=== PATIENT | female | born 1985 | race African-American/Black ===

== ENCOUNTER 2017-06-21 12:34 | Inpatient (IN) | payer MEDICAID ==
[~2017-06-21] VITALS: Ht 157.5 cm; Wt 61.2 kg
[~2017-06-21 12:34] MED LIST: FOLI-43 PO; PREN-55 PO
[2017-06-21] MEDS ORDERED: DEXT 5%/LR + PITOCIN 20UNITS/L 1,000 ML IV SCH ×2 (12:45→14:17)
[2017-06-21] MEDS ORDERED: NALOXONE HCL 0.4 MG/ML 1ML VIAL IM PRN (12:45)
[2017-06-21] MEDS ORDERED: MISOPROSTOL 100MCG TABLET VG SCH (12:45)
[2017-06-21] MEDS ORDERED: METHYLERGONOVINE MALEATE 0.2 MG/ML IM PRN (12:45)
[2017-06-21] MEDS ORDERED: CARBOPROST TROMETHAMINE 250 MCG/ML AMPUL IM PRN (12:45)
[2017-06-21] MEDS ORDERED: PENICILLIN G POTASSIUM 5 MMU in DEXT 5% WATER 100 ML IV SCH (12:45)
[2017-06-21] MEDS ORDERED: LIDOCAINE HCL/PF 1% 10 MG/ML 5ML VIAL IJ SCH (12:45)
[2017-06-21] MEDS ORDERED: LACTATED RINGERS 1,000 ML IV SCH (12:45)
[2017-06-21] MEDS ORDERED: BUTORPHANOL TARTRATE 2 MG/ML VIAL IV PRN (12:51)
[2017-06-21] MEDS ORDERED: MORPHINE SULFATE/PF 1MG/ML 10ML AMP ONE (13:30)
[2017-06-21] MEDS ORDERED: FENTANYL CITRATE/PF 50MCG/ML 2ML VIAL ONE (13:30)
[2017-06-21 13:31] LABS: BASOPHILS % 0.1 % (0.0-2.0); EOSINOPHILS % 0.1 % (0.0-5.0); HEMATOCRIT. 36.4 % (36.0-48.0); HEMOGLOBIN. 12.5 g/dL (12.0-16.0); LYMPHOCYTES % 12.2 % (20.0-50.0); MEAN CORPUSCULAR HEMOGLOBIN 31.4 pg (28.0-32.0); MEAN CORPUSCULAR VOLUME 91.4 fL (81.0-99.0); MEAN PLATELET VOLUME 8.9 fl (7.4-10.4); MONOCYTES % 6.6 % (2.0-8.0); PLATELET 124 x1000/uL (130-400); RED BLOOD CELL COUNT 3.98 mill/uL (4.2-5.4); RED CELL DISTRIBUTION WIDTH 15.4 % (11.6-14.6)
[2017-06-21] MEDS ORDERED: ONDANSETRON HCL 4MG/2ML VIAL ONE (13:35)
[2017-06-21] MEDS ORDERED: PHENYLEPHRINE HCL 10 MG/ML 1ML (IV VIAL) IV ONE (13:35)
[2017-06-21] MEDS ORDERED: EPHEDRINE SULFATE 50MG/ML VIAL ONE (13:35)
[2017-06-21] MEDS ORDERED: GLYCOPYRROLATE 0.2 MG/ML 2ML VIAL ONE (13:35)
[2017-06-21 13:39] LABS: INR 0.9; PARTIAL THROMBOPLASTIN TIME 32.2 sec (23.4-31.0); PROTHROMBIN TIME 9.4 sec (9.4-11.6)
[2017-06-21] MEDS ORDERED: LIDOCAINE HCL/PF 1% 10 MG/ML 5ML VIAL ONE (13:48)
[2017-06-21 14:13] LABS: HEPATITIS B SURFACE ANTIGEN NEGATIVE; RUBELLA IGG 140.9 IU/mL (4.99-10)
[2017-06-21 14:16] LABS: CLARITY URINE CLEAR (CLEAR); COLOR URINE YELLOW (YELLOW); KETONES URINE 1+ (NEGATIVE); LEUKOCYTE ESTERASE URINE NEGATIVE (NEGATIVE); NITRITE URINE NEGATIVE (NEGATIVE); OCCULT BLOOD URINE TRACE (NEGATIVE); PH URINE 6.5 (4.5-8.0); PROTEIN URINE NEGATIVE (NEGATIVE); SPECIFIC GRAVITY URINE 1.008 (1.005-1.030); UROBILINOGEN URINE 0.2 E.U./dL (0.2-1.0)
[2017-06-21] MEDS ORDERED: HEMORRHOIDAL SUPP PR PRN (14:30)
[2017-06-21] MEDS ORDERED: GLYCERIN/WITCH HAZEL LEAF MEDICATED PAD TOP PRN (14:30)
[2017-06-21] MEDS ORDERED: RHO(D) IMMUNE GLOBULIN 300 MCG/SYR IM PRN (14:30)
[2017-06-21] MEDS ORDERED: ACETAMINOPHEN WITH CODEINE 300/30MG TABLET PO PRN ×2 (14:30)
[2017-06-21] MEDS ORDERED: IBUPROFEN 400MG TABLET PO PRN (14:30)
[2017-06-21] MEDS ORDERED: INFLUENZA VIRUS VACCINE 0.5ML SYR IM ONE (14:30)
[2017-06-21] MEDS ORDERED: LANOLIN OINT 0.25 GM TUBE TOP PRN (14:30)
[2017-06-21] MEDS ORDERED: BISACODYL 10MG SUPP PR PRN (14:30)
[2017-06-21] MEDS ORDERED: DIPHENHYDRAMINE 25MG CAPSULE PO PRN (14:30)
[2017-06-21] MEDS ORDERED: TETANUS, DIPHTHERIA, PERTUSSIS VAC/PF 0.5ML (>7YR OLD) IM ONE (14:30)
[2017-06-21 14:42] LABS: *AMPHETAMINES SCREEN URINE NEGATIVE (NEGATIVE); *BARBITURATES SCREEN URINE NEGATIVE (NEGATIVE); *BENZODIAZEPINES SCREEN URINE NEGATIVE (NEGATIVE); *COCAINE SCREEN URINE NEGATIVE (NEGATIVE); METHADONE URINE SCREEN NEGATIVE (NEGATIVE); OPIATES URINE SCREEN NEGATIVE (NEGATIVE)
[2017-06-21 14:43] LABS: CANNABINOID URINE SCREEN NEGATIVE (NEGATIVE); PHENCYCLIDINE URINE SCREEN NEGATIVE (NEGATIVE)
[2017-06-21 15:51] VITALS: BP 109/66
[2017-06-21 16:53] VITALS: BP 106/64
[2017-06-21] MEDS ORDERED: PENICILLIN G POTASSIUM 2.5 MMU in DEXTROSE 5% WATER 50 ML IV SCH (17:00)
[2017-06-21 19:20] VITALS: BP 100/62
[2017-06-21] MEDS: DOCUSATE SODIUM 100MG CAPSULE PO SCH (21:10)
[2017-06-21] MEDS: SIMETHICONE 80MG TABLET CHEW PO SCH (21:11)
[2017-06-22] VITALS: BP 99/56
[2017-06-22 06:00] VITALS: BP 100/70
[2017-06-22 08:30] VITALS: BP 100/57
[2017-06-22] MEDS ORDERED: MEDROXYPROGESTERONE ACETATE 150MG/ML VIAL IM NR (10:30)
[2017-06-22] MEDS: BENZOCAINE/LANOLIN/ALOE VERA SPRAY TOP PRN ×2 (12:16→12:21)
[2017-06-22] MEDS: PRENATAL VIT/FE FUMARATE/FA TABLET PO SCH (12:16)
[2017-06-22] MEDS: SIMETHICONE 80MG TABLET CHEW PO SCH ×3 (12:17→21:06)
[2017-06-22 16:07] VITALS: BP 108/62
[2017-06-22] MEDS: FERROUS SULFATE 325MG TABLET PO SCH (17:10)
[2017-06-22 21:00] VITALS: BP 99/68
[2017-06-22] MEDS: DOCUSATE SODIUM 100MG CAPSULE PO SCH (21:05)
[2017-06-23] MEDS: FERROUS SULFATE 325MG TABLET PO SCH (08:57)
[2017-06-23] MEDS: SIMETHICONE 80MG TABLET CHEW PO SCH (08:57)
[2017-06-23] MEDS: PRENATAL VIT/FE FUMARATE/FA TABLET PO SCH (09:00)
[2017-06-23 09:03] VITALS: BP 92/56
== END 2017-06-23 12:15 | disposition home or self-care (01) | DRG 560 ==
LOC: EDBD 12:34 → L&D 12:34 → 7EST PP/OB 15:15
PROVIDERS: ADMIT Specialist; ATTEND Specialist
PROC: 0W8NXZZ Division of Female Perineum, External Approach (ICD-10-PCS; 2017-06-21)
PROC: 10E0XZZ Delivery of Products of Conception, External Approach (ICD-10-PCS; principal; 2017-06-21 13:42)
DX: O34.211 Maternal care for low transverse scar from previous cesarean delivery (principal); O77.0 Labor and delivery complicated by meconium in amniotic fluid; Z3A.38 38 weeks gestation of pregnancy; Z37.0 Single live birth
CPT/HCPCS: 36415; 80305; 81003; 85025; 85610; 85730; 86592; 86703; 86762; 86850; 86900; 87340; 90715; G0378; J0595; J1050; J2274; J2310; J2370; J2405; J2540; J2590; J3010; J3490; J7060; J7120